=== PATIENT | female | born 1980 | race Caucasian/White ===

== ENCOUNTER 2017-11-30 15:26 | Observation (INO) ==
[2017-11-30] MEDS: 0.9 % Sodium Chloride 1,000 ML IVC SCH ×2 (16:32→17:16)
--- NOTE | 2017-11-30 16:41 | Emergency Department Note ---
Disposition Clinical Impression: Knee pain Qualifiers: Chronicity: acute Laterality: right Qualified Code(s): M25.561 - Pain in right knee Cellulitis Qualifiers: Site of cellulitis of extremity: lower extremity Laterality: right Sepsis Qualifiers: Sepsis type: sepsis due to unspecified organism Qualified Code(s): A41.9 - Sepsis, unspecified organism Disposition: Admitted As Inpatient Condition: Good Referrals: Belia Roberson [Primary Care Provider] - Forms: ED Satisfaction Letter Time of Disposition: 18:59 Extremity Problem HPI - General Chief complaint: ED Extremity Problem,Nontraumatic Stated complaint: R knee pain s/p scope Time Seen by Provider: 11/30/17 15:45 Source: patient, family Mode of arrival: ambulatory Limitations: no limitations Nursing Notes Reviewed: Yes Vital Signs Reviewed: Yes - History of Present Illness HPI Narrative: Patient presents to the ED with the chief complaint of right knee pain and swelling as well as right leg pain. Patient had a knee arthroscopy [address] Sewell in [place]. States that since then her knee has become progressively swollen, warm and painful to the point where it is difficult for her to walk and difficult for her to bend her knee. She also reports pain in her calf as well as pain in her medial thigh. Denies any fever, chills, chest pain, shortness of breath, abdominal pain, nausea, vomiting or diarrhea. She does have a history of a previous provoked DVT after hysterectomy and is no longer on anticoagulation. She is also had a left knee replacement and was on aspirin after that, but is not on any antiplatelet medications at this time Pain Scale: 10 - Related Data Home Medications Medication Instructions Recorded Confirmed Cholecalciferol (D-3) [Vitamin D] 2,000 unit PO DAILY 05/31/16 02/14/17 Gabapentin [Neurontin] 800 mg PO QID 05/31/16 02/14/17 Levothyroxine Sodium [Levo-T] 200 mcg PO DAILY 05/31/16 02/14/17 Pnv95/Iron Fum/Folic Acid 1 tab PO DAILY 05/31/16 02/14/17 [ Caplet] Promethazine [Phenergan] 25 mg PO Q8HR 05/31/16 02/14/17 Quetiapine Fumarate [Seroquel] 200 mg PO DAILY 05/31/16 02/14/17 Ranitidine HCl [Acid Digital Account Executive] 150 mg PO BID 05/31/16 02/14/17 Sertraline [Zoloft] 100 mg PO DAILY 05/31/16 02/14/17 Previous Rx's Medication Instructions Recorded Clindamycin [Cleocin] 150 mg PO Q6HR #7 capsule 02/14/17 HYDROcodone/Acet 5/325 mg [[place] 1 tab PO Q6H PRN #14 tab 02/14/17 5-325 mg] Ibuprofen [Motrin] 800 mg PO Q8HR #30 tablet 02/14/17 OxyCODONE Immed Rel [Roxicodone 5 5 mg PO Q4HR PRN #14 tablet 02/14/17 MG] Allergies Allergy/AdvReac Type Severity Reaction Status Date / Time hydrocodone Allergy Hives Verified 11/30/17 15:40 penicillin G Allergy Rash Verified 11/30/17 15:40 tramadol Allergy Hives Verified 11/30/17 15:40 Review of Systems: As reviewed in the HPI. All other systems reviewed are negative or normal. Past Medical History - Past Medical History Attestation: Yes The following information was validated with the patient. 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 - Social History Smoking Status: Current every day smoker Smokeless Tobacco Status: No Alcohol use: Reports: occasionally Drug use: Reports: cocaine, IV Drug Use Physical Exam CONSTITUTIONAL: [well appearing in no acute distress] SKIN: [Warm, dry, and intact without rash] EYES: [extraocular movements are grossly intact, clear conjunctiva] HENT: [Normocephalic, atraumatic, moist mucus membranes] NECK: [no obvious swelling, normal range of motion] PULMONARY: [normal chest rise and fall, no respiratory distress or stridor CARDIOVASCULAR: [regular rate, distal extremities are warm and well perfused] GASTROINSTESTINAL: [nondistended, non-tender] GENITOURINARY: [deferred] NEUROLOGIC: [normal speech, moves all extremities] MUSCULOSKELETAL: [Well-healed left knee replacement incision, right knee incisions are clean, dry and intact with Steri-Strips. There is diffuse swelling and warmth to the right knee with decreased range of motion. She is able to fully extend her knee but has decreased flexion. There is no obvious erythema, but there does appear to be a joint effusion. She also has pain in her calf as well as pain along the deep venous structures in her right proximal thigh] PSYCHIATRIC: [normal mood and affect] - General Limitations: no limitations General appearance: alert, in no apparent distress Course Course Narrative: Patient presenting with knee pain and leg pain after recent knee surgery. Concern over possible DVT due to her tenderness, but her knee is also swollen and warm. We will check labs, x-ray and a DVT ultrasound. Would be very early for a septic joint and still could be a cellulitis due to warmth but is difficult to tell if there are color changes due to patient's skin color. Vital Signs Temperature 99.1 F 11/30/17 15:41 Pulse Rate 99 11/30/17 15:41 Respiratory Rate 20 11/30/17 15:41 Blood Pressure 124/74 11/30/17 15:41 O2 Sat by Pulse Oximetry 97 11/30/17 15:41 Temperature 99.1 F 11/30/17 15:52 Pulse Rate 84 11/30/17 18:41 Respiratory Rate 20 11/30/17 15:52 Blood Pressure 117/64 11/30/17 18:41 O2 Sat by Pulse Oximetry 99 11/30/17 18:41 Oxygen Delivery Oxygen Delivery Room Air Extremity Problem, Nontraumati - Lab Data Result diagrams: 11/30/17 16:18 11/30/17 17:26 Lab Results 11/30/17 11/30/17 11/30/17 Range/Units 16:18 16:18 16:18 WBC 13.2 H (4.3-11.1) K/mcL RBC 5.46 H (3.82-4.97) M/mcL Hgb 16.2 H (11.5-15.4) g/dL Hct 47.6 H (35.3-44.9) % MCV 87.2 (83.0-100.0) fL MCH 29.7 (28.0-33.3) pg MCHC 34.0 (31.6-35.5) g/dL RDW 14.1 (11.5-14.5) % Plt Count 291 (140-400) K/mcL MPV 11.4 (9.4-12.4) fL Immature Gran % 0.4 (0-4) % Seg Neutrophils % 66.5 % Lymphocytes % 25.8 % Monocytes % 5.9 % Eosinophils % 0.9 % Basophils % 0.5 % Neutrophils # 8.8 (1.6-8.9) K/mcL Lymphocytes # 3.4 (0.6-4.6) K/mcL Monocytes # 0.8 (0.0-1.3) K/mcL Eosinophils # 0.1 (0.0-0.6) K/mcL Basophils # 0.1 (0.0-0.2) K/mcL ESR >= 130 H (0-15) mm/hr Sodium (136-145) mEq/L Potassium (3.5-5.1) mEq/L Chloride (98-107) mEq/L Carbon Dioxide (23-29) mEq/L BUN (6-20) mg/dL Creatinine (0.60-1.20) mg/dL Est GFR ( Amer) (> 60) Est GFR (Non-Af Amer) (> 60) BUN/Creatinine Ratio (6-26) Glucose (70-105) mg/dL Calculated Osmolality (280-300) Lactic Acid (0.5-2.2) mmol/L Calcium (8.6-10.3) mg/dL C-Reactive Protein (Less than 10) mg/L Specimen Rejected Hemolyzed 18 11/30/17 Range/Units 17:26 17:39 WBC (4.3-11.1) K/mcL RBC (3.82-4.97) M/mcL Hgb (11.5-15.4) g/dL Hct (35.3-44.9) % MCV (83.0-100.0) fL MCH (28.0-33.3) pg MCHC (31.6-35.5) g/dL RDW (11.5-14.5) % Plt Count (140-400) K/mcL MPV (9.4-12.4) fL Immature Gran % (0-4) % Seg Neutrophils % % Lymphocytes % % Monocytes % % Eosinophils % % Basophils % % Neutrophils # (1.6-8.9) K/mcL Lymphocytes # (0.6-4.6) K/mcL Monocytes # (0.0-1.3) K/mcL Eosinophils # (0.0-0.6) K/mcL Basophils # (0.0-0.2) K/mcL ESR (0-15) mm/hr Sodium 137 (136-145) mEq/L Potassium 4.0 (3.5-5.1) mEq/L Chloride 106 (98-107) mEq/L Carbon Dioxide 23 (23-29) mEq/L BUN 15 (6-20) mg/dL Creatinine 1.06 (0.60-1.20) mg/dL Est GFR ( Amer) > 60 (> 60) Est GFR (Non-Af Amer) 58 L (> 60) BUN/Creatinine Ratio 14 (6-26) Glucose 74 (70-105) mg/dL Calculated Osmolality 283 (280-300) Lactic Acid 1.4 (0.5-2.2) mmol/L Calcium 9.1 (8.6-10.3) mg/dL C-Reactive Protein < 5 (Less than 10) mg/L Specimen Rejected
[2017-11-30 16:49] LABS: Basophils # 0.1 K/mcL (0.0-0.2); Basophils % 0.5 %; Eosinophils # 0.1 K/mcL (0.0-0.6); Eosinophils % 0.9 %; Hematocrit 47.6 % (35.3-44.9); Hemoglobin 16.2 g/dL (11.5-15.4); Immature Granulocytes % 0.4 % (0-4); Lymphocytes # 3.4 K/mcL (0.6-4.6); Lymphocytes % 25.8 %; Mean Corpuscular Hemoglobin 29.7 pg (28.0-33.3); Mean Corpuscular Volume 87.2 fL (83.0-100.0); Mean Platelet Volume 11.4 fL (9.4-12.4); Monocytes # 0.8 K/mcL (0.0-1.3); Monocytes % 5.9 %; Neutrophils # 8.8 K/mcL (1.6-8.9); Platelet Count 291 K/mcL (140-400); Red Blood Count 5.46 M/mcL (3.82-4.97); Red Cell Distribution Width 14.1 % (11.5-14.5); Segmented Neutrophils % 66.5 %
[2017-11-30] MEDS ORDERED: cefTRIAXone 2,000 MG in Water for inj. (sterile) 20 ML 20 ML IVP ONE (17:02)
[2017-11-30 18:05] LABS: C-Reactive Protein < 5 mg/L (Less than 10)
[2017-11-30 18:18] LABS: BUN/Creatinine Ratio 14 (6-26); Blood Urea Nitrogen 15 mg/dL (6-20); Calcium 9.1 mg/dL (8.6-10.3); Carbon Dioxide 23 mEq/L (23-29); Chloride 106 mEq/L (98-107); Glucose 74 mg/dL (70-105); Osmolality,Calculated 283 (280-300); Sodium 137 mEq/L (136-145); eGFR For African Americans > 60 (> 60); eGFR For Non-African Americans 58 (> 60)
[2017-11-30 19:26] LABS: Bilirubin,Urine Negative (Negative); Blood,Urine Negative (Negative); Clarity,Urine Clear (Clear); Color,Urine Yellow (Yellow); Glucose,Urine (UA) Normal (Normal); Ketones,Urine Negative (Negative); Leukocyte Esterase,Urine Negative (Negative); Nitrite,Urine Negative (Negative); PH,Urine 5.5 pH Units (5.0-8.0); Protein,Urine Negative (Neg-Trace); Specific Gravity,Urine 1.017 (1.010-1.025); Urobilinogen,Urine Normal (Normal)
--- NOTE | 2017-11-30 19:45 | Emergency Department Note ---
Disposition Clinical Impression: Knee pain Qualifiers: Chronicity: acute Laterality: right Qualified Code(s): M25.561 - Pain in right knee Cellulitis Qualifiers: Site of cellulitis of extremity: lower extremity Laterality: right Sepsis Qualifiers: Sepsis type: sepsis due to unspecified organism Qualified Code(s): A41.9 - Sepsis, unspecified organism Disposition: Admitted As Inpatient Condition: Good General Adult HPI - General Chief complaint: ED Extremity Problem,Nontraumatic Stated complaint: R knee pain s/p scope Time Seen by Provider: 11/30/17 15:45 Source: patient, family Mode of arrival: ambulatory Limitations: no limitations - History of Present Illness Pain Scale: 10 - Related Data Home Medications Medication Instructions Recorded Confirmed Cholecalciferol (D-3) [Vitamin D] 2,000 unit PO DAILY 05/31/16 02/14/17 Gabapentin [Neurontin] 800 mg PO QID 05/31/16 02/14/17 Levothyroxine Sodium [Levo-T] 200 mcg PO DAILY 05/31/16 02/14/17 Pnv95/Iron Fum/Folic Acid 1 tab PO DAILY 05/31/16 02/14/17 [ Caplet] Promethazine [Phenergan] 25 mg PO Q8HR 05/31/16 02/14/17 Quetiapine Fumarate [Seroquel] 200 mg PO DAILY 05/31/16 02/14/17 Ranitidine HCl [Acid Manager Of Loss Prevention Operations] 150 mg PO BID 05/31/16 02/14/17 Sertraline [Zoloft] 100 mg PO DAILY 05/31/16 02/14/17 Previous Rx's Medication Instructions Recorded Clindamycin [Cleocin] 150 mg PO Q6HR #7 capsule 02/14/17 HYDROcodone/Acet 5/325 mg [[place] 1 tab PO Q6H PRN #14 tab 02/14/17 5-325 mg] Ibuprofen [Motrin] 800 mg PO Q8HR #30 tablet 02/14/17 OxyCODONE Immed Rel [Roxicodone 5 5 mg PO Q4HR PRN #14 tablet 02/14/17 MG] Allergies Allergy/AdvReac Type Severity Reaction Status Date / Time hydrocodone Allergy Hives Verified 11/30/17 15:40 penicillin G Allergy Rash Verified 11/30/17 15:40 tramadol Allergy Hives Verified 11/30/17 15:40 Past Medical History - Past Medical History Medical history: Reports: arthritis, GERD, thyroid disease Surgical history: Reports: non-contributory, hysterectomy Psychiatric history: Reports: anxiety, depression 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 - Social History Smoking Status: Current every day smoker Smokeless Tobacco Status: No Alcohol use: Reports: occasionally Drug use: Reports: cocaine, IV Drug Use Physical Exam - General Limitations: no limitations General appearance: alert, in no apparent distress Course Vital Signs Temperature 99.1 F 11/30/17 15:41 Pulse Rate 99 11/30/17 15:41 Respiratory Rate 20 11/30/17 15:41 Blood Pressure 124/74 11/30/17 15:41 O2 Sat by Pulse Oximetry 97 11/30/17 15:41 Temperature 99.1 F 11/30/17 15:52 Pulse Rate 84 11/30/17 18:41 Respiratory Rate 20 11/30/17 15:52 Blood Pressure 117/64 11/30/17 18:41 O2 Sat by Pulse Oximetry 99 11/30/17 18:41 Oxygen Delivery Oxygen Delivery Room Air Medical Decision Making - Lab Data Result diagrams: 11/30/17 16:18 11/30/17 17:26 Lab Results 11/30/17 11/30/17 11/30/17 Range/Units 16:18 16:18 16:18 WBC 13.2 H (4.3-11.1) K/mcL RBC 5.46 H (3.82-4.97) M/mcL Hgb 16.2 H (11.5-15.4) g/dL Hct 47.6 H (35.3-44.9) % MCV 87.2 (83.0-100.0) fL MCH 29.7 (28.0-33.3) pg MCHC 34.0 (31.6-35.5) g/dL RDW 14.1 (11.5-14.5) % Plt Count 291 (140-400) K/mcL MPV 11.4 (9.4-12.4) fL Immature Gran % 0.4 (0-4) % Seg Neutrophils % 66.5 % Lymphocytes % 25.8 % Monocytes % 5.9 % Eosinophils % 0.9 % Basophils % 0.5 % Neutrophils # 8.8 (1.6-8.9) K/mcL Lymphocytes # 3.4 (0.6-4.6) K/mcL Monocytes # 0.8 (0.0-1.3) K/mcL Eosinophils # 0.1 (0.0-0.6) K/mcL Basophils # 0.1 (0.0-0.2) K/mcL ESR >= 130 H (0-15) mm/hr Sodium (136-145) mEq/L Potassium (3.5-5.1) mEq/L Chloride (98-107) mEq/L Carbon Dioxide (23-29) mEq/L BUN (6-20) mg/dL Creatinine (0.60-1.20) mg/dL Est GFR ( Amer) (> 60) Est GFR (Non-Af Amer) (> 60) BUN/Creatinine Ratio (6-26) Glucose (70-105) mg/dL Calculated Osmolality (280-300) Lactic Acid (0.5-2.2) mmol/L Calcium (8.6-10.3) mg/dL C-Reactive Protein (Less than 10) mg/L Urine Color (Yellow) Urine Clarity (Clear) Urine pH (5.0-8.0) pH Units Ur Specific [place] (1.010-1.025) Urine Protein (Neg-Trace) mg/dL Urine Glucose (UA) (Normal) mg/dL Urine Ketones (Negative) mg/dL Urine Blood (Negative) Urine Nitrite (Negative) Urine Bilirubin (Negative) Urine Urobilinogen (Normal) mg/dL Ur Leukocyte Esterase (Negative) Ur Culture Indicated? (NO) Specimen Rejected Hemolyzed 11/30/17 11/30/17 11/30/17 Range/Units 17:26 17:39 19:16 WBC (4.3-11.1) K/mcL RBC (3.82-4.97) M/mcL Hgb (11.5-15.4) g/dL Hct (35.3-44.9) % MCV (83.0-100.0) fL MCH (28.0-33.3) pg MCHC (31.6-35.5) g/dL RDW (11.5-14.5) % Plt Count (140-400) K/mcL MPV (9.4-12.4) fL Immature Gran % (0-4) % Seg Neutrophils % % Lymphocytes % % Monocytes % % Eosinophils % % Basophils % % Neutrophils # (1.6-8.9) K/mcL Lymphocytes # (0.6-4.6) K/mcL Monocytes # (0.0-1.3) K/mcL Eosinophils # (0.0-0.6) K/mcL Basophils # (0.0-0.2) K/mcL ESR (0-15) mm/hr Sodium 137 (136-145) mEq/L Potassium 4.0 (3.5-5.1) mEq/L Chloride 106 (98-107) mEq/L Carbon Dioxide 23 (23-29) mEq/L BUN 15 (6-20) mg/dL Creatinine 1.06 (0.60-1.20) mg/dL Est GFR ( Amer) > 60 (> 60) Est GFR (Non-Af Amer) 58 L (> 60) BUN/Creatinine Ratio 14 (6-26) Glucose 74 (70-105) mg/dL Calculated Osmolality 283 (280-300) Lactic Acid 1.4 (0.5-2.2) mmol/L Calcium 9.1 (8.6-10.3) mg/dL C-Reactive Protein < 5 (Less than 10) mg/L Urine Color Yellow (Yellow) Urine Clarity Clear (Clear) Urine pH 5.5 (5.0-8.0) pH Units Ur Specific [place] 1.017 (1.010-1.025) Urine Protein Negative (Neg-Trace) mg/dL Urine Glucose (UA) Normal (Normal) mg/dL Urine Ketones Negative (Negative) mg/dL Urine Blood Negative (Negative) Urine Nitrite Negative (Negative) Urine Bilirubin Negative (Negative) Urine Urobilinogen Normal (Normal) mg/dL Ur Leukocyte Esterase Negative (Negative) Ur Culture Indicated? NO (NO) Specimen Rejected Attestation Statement - Attestation Attestation: I examined this patient and my medical decision-making was reviewed with the Resident Physician, Dr. Mcfarland. I agree with the documented findings, disposition and treatment plan as described except to the extent set forth below. Patient is a 37-year-old white female who is status post right knee surgery I Dr. Donaldo carey approximately 3 days ago. Patient states that since the surgery she has been having gradually worsening swelling redness and warmth to been knee and difficulty bending the knee due to his due to pain. Patient's also complaining of some pain in her left posterior lower leg and medial thigh. Patient has had a history of prior DVT postoperatively but is no longer on anticoagulation. Patient denies any chest pain pressure or heaviness no shortness of breath or hemoptysis. I agree with patient's physical exam findings as documented. Vital signs on initial arrival are stable. Patient IV established labs were drawn and sent including a sedimentation rate and blood culture, and plain film imaging was obtained. Plain film imaging did not show any joint effusion. Patient with elevated white count with left shift as well as a significantly elevated sedimentation rate. On reevaluation patient was becoming tachycardic so IV fluids were initiated and lactate was added to the lab evaluation. IV antibiotics were. Please started for cellulitis versus septic joint. CRP was normal, lactate was within normal limits and vitals responded nicely to IV fluids. Patient has been hemodynamically stable since that time. Case was discussed with Dr. Donaldo carey who agreed with admission and consultation and will see the patient tomorrow. Patient was accepted by the hospitalist for further evaluation and management.
[2017-11-30] MEDS ORDERED: Ipratropium/Albuterol Neb 3 ML IH PRN (19:48)
[2017-11-30] MEDS ORDERED: Ibuprofen 400 MG TABLET PO PRN (19:49)
[2017-11-30] MEDS ORDERED: *HR* OxyCODONE Immed Rel 5 MG TABLET PO PRN (19:49)
[2017-11-30] MEDS ORDERED: Naloxone 0.4 MG/ML INJ IVP PRN (19:49)
[2017-11-30] MEDS ORDERED: traMADol 50 MG TABLET PO PRN (19:49)
--- NOTE | 2017-11-30 19:54 | Internal Med History&Physical ---
Date of Encounter: 11/30/17 Time of Encounter: 19:52 Internal Medicine - H&P: HPI Chief complaint: Right knee pain Admitted From: Emergency Dept History of present illness: Ms. Darryl Mehta is a 37 year old female with a past mental history of hepatitis C, remote history of IV drug abuse, osteoarthritis, came to emergency room complaining of severe knee pain after having an arthroscopy 4 days ago on her right knee performed by Dr. Sewell, the patient describes a 10 out of 10 type of pain, says that her knee has become more swollen, warm, can barely and it. This procedure was performed in [place]. X-ray shows a right suprapatellar effusion. White blood cell count is 13.2 hemoglobin has increased from a baseline of 12.2 at 2 level of 16.2 possibly from dehydration, temperature was 99.1, ESR was more than 130. Patient received Rocephin and IV vancomycin at the emergency room and Dr. Sewell has been contacted. There is minimal redness around the 2 small surgical wounds. 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 grey carpal tunnel. fx rt hand repair - Social History Smoking Status: Current every day smoker Packs per day: Half a pack per day Smokeless Tobacco Status: No Alcohol use: occasionally Drug use: cocaine, IV Drug Use - Additional Family History Additional family history: Mother with diabetes Internal Medicine - H&P: Meds Cholecalciferol (D-3) [Vitamin D] 2,000 unit PO DAILY 05/31/16 [History] Gabapentin [Neurontin] 800 mg PO QID 05/31/16 [History] Levothyroxine Sodium [Levo-T] 200 mcg PO DAILY 05/31/16 [History] Pnv95/Iron Fum/Folic Acid [ [place]] 1 tab PO DAILY 05/31/16 [History] Promethazine [Phenergan] 25 mg PO Q8HR 05/31/16 [History] Quetiapine Fumarate [Seroquel] 200 mg PO DAILY 05/31/16 [History] Ranitidine HCl [Acid Compensation And Benefits Administrator] 150 mg PO BID 05/31/16 [History] Sertraline [Zoloft] 100 mg PO DAILY 05/31/16 [History] Clindamycin [Cleocin] 150 mg PO Q6HR #7 capsule 02/14/17 [Rx] HYDROcodone/Acet 5/325 mg [[place] 5-325 mg] 1 tab PO Q6H PRN #14 tab 02/14/17 [Rx ] Ibuprofen [Motrin] 800 mg PO Q8HR #30 tablet 02/14/17 [Rx] OxyCODONE Immed Rel [Roxicodone 5 MG] 5 mg PO Q4HR PRN #14 tablet 02/14/17 [Rx] 3 Allergy/AdvReac Type Severity Reaction Status Date / Time hydrocodone Allergy Hives Verified 11/30/17 15:40 penicillin G Allergy Rash Verified 11/30/17 15:40 tramadol Allergy Hives Verified 11/30/17 15:40 All Systems PM: A 10-system review of systems was performed and is negative for pertinent findings except as documented above in the HPI. Review of systems: No chest pain or shortness of breath, other systems out of the 10 reviewed were negative - Constitutional Vitals: Temp Pulse Resp BP Pulse Ox 99.1 F 84 20 117/64 99 11/30/17 15:52 11/30/17 18:41 11/30/17 15:52 11/30/17 18:41 11/30/17 18:41 General appearance: Present: A&O X 3 - Head Head exam: Present: atraumatic, normocephalic - Eye Eye exam: Present: PERRL, conjuntiva pink, sclera anicteric Pupils: Present: PERRL - Neck Neck exam general surgery: Present: supple, trachea midline. Absent: lymphadenopathy - Respiratory Respiratory exam: Present: CTAB. Absent: accessory muscle use, rales, rhonchi, wheezes - Cardiovascular Cardiovascular exam: Present: RRR, +S1, +S2. Absent: diastolic murmur, gallop, rubs, systolic murmur - GI/Abdominal GI/Abdominal exam: Present: normal bowel sounds, soft, no peritoneal signs. Absent: distended, tenderness - Extremities Exam Extremities exam: Present: warm, radial pulses palpable and symmetrical. Absent : calf tenderness, cyanotic, pedal edema - Neurological Exam Neurological exam: Present: CN II-XII intact, oriented X3, no focal deficits. Absent: pronater drift, facial droop, speech deficit - Skin Skin exam: Present: dry. Absent: intact Additional comments: Right knee is very swollen, tender to touch, no erythema appreciated, surgical wounds did not appear infected Internal Med - H&P Results - Labs CBC & Chem 7: 11/30/17 16:18 11/30/17 17:26 Labs: Short CBC 11/30/17 Range/Units 16:18 WBC 13.2 H (4.3-11.1) K/mcL Hgb 16.2 H (11.5-15.4) g/dL Hct 47.6 H (35.3-44.9) % Plt Count 291 (140-400) K/mcL Neutrophils # 8.8 (1.6-8.9) K/mcL BMP 11/30/17 17:26 Sodium 137 Potassium 4.0 Chloride 106 Carbon Dioxide 23 BUN 15 Creatinine 1.06 Glucose 74 Calcium 9.1 Urine 11/30/17 Range/Units 19:16 Urine Color Yellow (Yellow) Urine Clarity Clear (Clear) Urine pH 5.5 (5.0-8.0) pH Units Ur Specific [place] 1.017 (1.010-1.025) Urine Protein Negative (Neg-Trace) mg/dL Urine Glucose (UA) Normal (Normal) mg/dL - Impressions ITS Impressions Knee X-Ray 11/30/17 15:52 IMPRESSION: 1. No acute findings in the right knee. 2. Minimal tricompartmental osteoarthritic changes of the right knee. 3. Trace right suprapatellar effusion. D/ / Bob Llanes MD / Bob Llanes MD Interpreting Provider: Bob Llanes MD - Assessment and plan (1) Knee pain Current Visit: Yes Status: Acute Assessment and plan: intractable right knee pain after right knee arthroscopy Consider possible cellulitis? Orthopedic surgery was consulted, IV fluids for dehydration Pain control Consider further imaging Wound cultures Continue IV vancomycin for now Omeprazole for GI prophylaxis and Lovenox for DVT prophylaxis. The patient will be admitted for observation. Full code. Time spent on this admission 40 minutes Qualifiers: Chronicity: acute Laterality: right Qualified Code(s): M25.561 - Pain in right knee (2) Leukocytosis Current Visit: Yes Status: Acute Qualifiers: Leukocytosis type: unspecified Qualified Code(s): D72.829 - Elevated white blood cell count, unspecified (3) Dehydration Current Visit: Yes Status: Acute Assessment and plan: Continue IV fluids Hemoconcentration (4) GERD (gastroesophageal reflux disease) Current Visit: Yes Status: Acute Qualifiers: Esophagitis presence: without esophagitis Qualified Code(s): K21.9 - Gastro -esophageal reflux disease without esophagitis (5) History of intravenous drug abuse Current Visit: Yes Status: Acute (6) Tobacco abuse Current Visit: Yes Status: Acute Assessment and plan: Smoking cessation counseling given for 5 min , nicotine patch (7) Hepatitis C Current Visit: Yes Status: Acute Qualifiers: Viral hepatitis chronicity: unspecified Hepatic coma status: without hepatic coma Qualified Code(s): B19.20 - Unspecified viral hepatitis C without hepatic coma (8) Depression Current Visit: No Status: Acute Qualifiers: Depression Type: major depressive disorder Major depression recurrence: recurrent Active/Remission status: in partial remission Qualified Code(s): F33.41 - Major depressive disorder, recurrent, in partial remission - Time Spent With Patient Total time spent is greater than 50% in coordination of care (as documented) at patient's floor/unit and/or counseling patient:
[2017-11-30] MEDS: Gabapentin 400 MG CAPSULE PO SCH (21:55)
[2017-11-30] MEDS: Nicotine 21 MG PATCH.TD24 TD SCH (21:55)
[2017-11-30] MEDS: *HR* Enoxaparin 40 MG/0.4 ML SYRINGE SQ SCH (21:55)
[2017-12-01] MEDS: ALPRAZolam 1 MG TABLET PO SCH ×5 (00:33→21:19)
[2017-12-01 03:27] LABS: Hematocrit 39.2 % (35.3-44.9); Mean Corpuscular HGB Conc 33.4 g/dL (31.6-35.5); Mean Corpuscular Hemoglobin 28.5 pg (28.0-33.3); Mean Corpuscular Volume 85.4 fL (83.0-100.0); Mean Platelet Volume 11.1 fL (9.4-12.4); Platelet Count 237 K/mcL (140-400); Red Blood Count 4.59 M/mcL (3.82-4.97); Red Cell Distribution Width 14.1 % (11.5-14.5)
[2017-12-01 03:33] LABS: BUN/Creatinine Ratio 18 (6-26); Blood Urea Nitrogen 15 mg/dL (6-20); Calcium 8.4 mg/dL (8.6-10.3); Carbon Dioxide 22 mEq/L (23-29); Chloride 110 mEq/L (98-107); Glucose 105 mg/dL (70-105); Osmolality,Calculated 283 (280-300); Potassium 3.7 mEq/L (3.5-5.1); Sodium 136 mEq/L (136-145); eGFR For African Americans > 60 (> 60); eGFR For Non-African Americans > 60 (> 60)
[2017-12-01 03:37] LABS: Hemoglobin 13.1 g/dL (11.5-15.4)
[2017-12-01] MEDS: *HR* Enoxaparin 40 MG/0.4 ML SYRINGE SQ SCH (05:08)
[2017-12-01] MEDS: Acetaminophen 325 MG TABLET PO PRN ×2 (05:10→11:23)
[2017-12-01] MEDS: Gabapentin 400 MG CAPSULE PO SCH ×4 (07:34→21:18)
[2017-12-01] MEDS: Famotidine 20 MG TABLET PO SCH ×2 (07:34→16:03)
[2017-12-01] MEDS: Nicotine 21 MG PATCH.TD24 TD SCH (07:35)
--- NOTE | 2017-12-01 08:46 | Internal Med Progress Note ---
Date of Encounter: 12/01/17 Time of Encounter: 08:44 - Assessment and plan (1) Knee pain Current Visit: Yes Status: Acute Assessment and plan: S/P right knee arthroscopy. Erythema and edema improved. Possible cellulitis. Orthopedics consulted; appreciate input. Added toradol per patient's request for pain control. Continue IV vancomycin. Wound culture pending. Continue IVF for hydration. Recheck labwork in AM. Qualifiers: Chronicity: acute Laterality: right Qualified Code(s): M25.561 - Pain in right knee (2) Depression Current Visit: Yes Status: Chronic Assessment and plan: Continue home medications. Qualifiers: Depression Type: major depressive disorder Major depression recurrence: recurrent Active/Remission status: in partial remission Qualified Code(s): F33.41 - Major depressive disorder, recurrent, in partial remission (3) Leukocytosis Current Visit: Yes Status: Acute Assessment and plan: Improved. Possible right knee cellulitis. Continue antibiotics as per above. Qualifiers: Leukocytosis type: unspecified Qualified Code(s): D72.829 - Elevated white blood cell count, unspecified (4) Dehydration Current Visit: Yes Status: Acute Assessment and plan: Continue IVF. Likely hemoconcentration. (5) GERD (gastroesophageal reflux disease) Current Visit: Yes Status: Chronic Assessment and plan: Continue omeprazole and famotidine. Qualifiers: Esophagitis presence: without esophagitis Qualified Code(s): K21.9 - Gastro -esophageal reflux disease without esophagitis (6) History of intravenous drug abuse Current Visit: Yes Status: Chronic Assessment and plan: No withdrawal symptoms at this time. Continue to monitor. (7) Tobacco abuse Current Visit: Yes Status: Chronic Assessment and plan: Counselled on smoking cessation. Continue nicotine transdermal. (8) Hepatitis C Current Visit: Yes Status: Chronic Assessment and plan: Keep outpatient follow up. Qualifiers: Viral hepatitis chronicity: unspecified Hepatic coma status: without hepatic coma Qualified Code(s): B19.20 - Unspecified viral hepatitis C without hepatic coma (9) DVT prophylaxis Current Visit: Yes Status: Acute Assessment and plan: Continue SQ lovenox. - Time Spent With Patient Total time spent is greater than 50% in coordination of care (as documented) at patient's floor/unit and/or counseling patient: less than 15 minutes - Subjective Interval history: Patient had no acute events overnight. She still has pain in right knee, but erythema and edema improved. She states that she cannot take opioids and wants toradol for pain. She denies fever, chills, chest pain, SOB, nausea, vomiting, and abdominal pain. She has no other complaints at this time. - Constitutional Vitals: Temp Pulse Resp BP Pulse Ox 97.5 F L 80 17 104/70 96 12/01/17 08:17 12/01/17 08:17 12/01/17 08:17 12/01/17 08:17 12/01/17 08:17 General appearance: Present: cooperative, A&O X 3, pleasant, no acute distress, answers questions appropriately - Respiratory Respiratory exam: Present: CTAB. Absent: accessory muscle use, rales, rhonchi, wheezes Additional comments: Normal WOB - Cardiovascular Cardiovascular exam: Present: RRR, +S1, +S2. Absent: diastolic murmur, gallop, rubs, systolic murmur Additional comments: Trace right knee edema, otherwise no BLE edema - GI/Abdominal GI/Abdominal exam: Present: normal bowel sounds, soft. Absent: distended, hepatomegaly, mass, splenomegaly, tenderness - Extremities Exam Additional comments: Mild erythema and edema of right knee, surgical scar on left knee - Psychiatric Psychiatric exam: Present: normal affect, normal mood. Absent: agitated, anxious, depressed - Skin Skin exam: Present: dry, intact, warm. Absent: cyanosis, rash Internal Medicine: Result - Labs CBC & Chem 7: 12/01/17 02:26 12/01/17 02:26 Labs: Short CBC 12/01/17 Range/Units 02:26 WBC 9.4 (4.3-11.1) K/mcL Hgb 13.1 D (11.5-15.4) g/dL Hct 39.2 (35.3-44.9) % Plt Count 237 (140-400) K/mcL BMP 12/01/17 02:26 Sodium 136 Potassium 3.7 Chloride 110 H Carbon Dioxide 22 L BUN 15 Creatinine 0.85 Glucose 105 Calcium 8.4 L Consult Discharge Plan - Plan Referrals: Belia Roberson [Primary Care Provider] -
[2017-12-01] MEDS: Prenatal Vit/FA 1 EACH TABLET PO SCH (08:59)
[2017-12-01] MEDS ORDERED: GI Cocktail 40 ML EACH PO ONE (12:30)
[2017-12-02 02:46] LABS: Basophils % 0.4 %; Eosinophils # 0.1 K/mcL (0.0-0.6); Eosinophils % 1.7 %; Hematocrit 37.6 % (35.3-44.9); Immature Granulocytes % 0.4 % (0-4); Lymphocytes # 2.6 K/mcL (0.6-4.6); Lymphocytes % 32.7 %; Mean Corpuscular HGB Conc 34.6 g/dL (31.6-35.5); Mean Corpuscular Hemoglobin 29.6 pg (28.0-33.3); Mean Corpuscular Volume 85.6 fL (83.0-100.0); Mean Platelet Volume 11.3 fL (9.4-12.4); Monocytes # 0.4 K/mcL (0.0-1.3); Monocytes % 5.6 %; Neutrophils # 4.7 K/mcL (1.6-8.9); Platelet Count 207 K/mcL (140-400); Red Blood Count 4.39 M/mcL (3.82-4.97); Red Cell Distribution Width 13.8 % (11.5-14.5); Segmented Neutrophils % 59.2 %
[2017-12-02 03:06] LABS: BUN/Creatinine Ratio 18 (6-26); Blood Urea Nitrogen 16 mg/dL (6-20); Calcium 8.3 mg/dL (8.6-10.3); Carbon Dioxide 19 mEq/L (23-29); Chloride 112 mEq/L (98-107); Glucose 112 mg/dL (70-105); Osmolality,Calculated 286 (280-300); Potassium 4.3 mEq/L (3.5-5.1); Sodium 137 mEq/L (136-145); eGFR For African Americans > 60 (> 60); eGFR For Non-African Americans > 60 (> 60)
[2017-12-02] MEDS: *HR* Enoxaparin 40 MG/0.4 ML SYRINGE SQ SCH (06:15)
[2017-12-02] MEDS: Famotidine 20 MG TABLET PO SCH ×2 (06:15→15:43)
[2017-12-02] MEDS: Gabapentin 400 MG CAPSULE PO SCH ×4 (07:26→20:17)
[2017-12-02] MEDS: Prenatal Vit/FA 1 EACH TABLET PO SCH (07:26)
[2017-12-02] MEDS: Nicotine 21 MG PATCH.TD24 TD SCH (07:27)
[2017-12-02] MEDS: ALPRAZolam 1 MG TABLET PO SCH ×4 (07:27→20:17)
--- NOTE | 2017-12-02 07:48 | Internal Med Progress Note ---
Date of Encounter: 12/02/17 Time of Encounter: 07:46 - Assessment and plan (1) Knee pain Current Visit: Yes Status: Acute Assessment and plan: S/P right knee arthroscopy. Erythema, edema, and pain improved. Possible cellulitis. Orthopedics consulted; appreciate input. Continue toradol PRN pain. Continue IV vancomycin. Wound culture pending. Discontinue IVF now that she's tolerating good PO. Recheck labwork in AM. Consider discharge in AM tomorrow with PO antibiotics after orthopedic evaluation this evening. Qualifiers: Chronicity: acute Laterality: right Qualified Code(s): M25.561 - Pain in right knee (2) Depression Current Visit: Yes Status: Chronic Assessment and plan: Continue home medications. Qualifiers: Depression Type: major depressive disorder Major depression recurrence: recurrent Active/Remission status: in partial remission Qualified Code(s): F33.41 - Major depressive disorder, recurrent, in partial remission (3) Leukocytosis Current Visit: Yes Status: Resolved Assessment and plan: Resolved. Possible right knee cellulitis. Continue antibiotics as per above. Recheck CBC in AM. Qualifiers: Leukocytosis type: unspecified Qualified Code(s): D72.829 - Elevated white blood cell count, unspecified (4) Dehydration Current Visit: Yes Status: Resolved Assessment and plan: Now tolerating good PO. Likely hemoconcentration. Discontinue IVF. Recheck BMP in AM. (5) GERD (gastroesophageal reflux disease) Current Visit: Yes Status: Chronic Assessment and plan: Continue omeprazole and famotidine. Qualifiers: Esophagitis presence: without esophagitis Qualified Code(s): K21.9 - Gastro -esophageal reflux disease without esophagitis (6) History of intravenous drug abuse Current Visit: Yes Status: Chronic Assessment and plan: No withdrawal symptoms at this time. Continue to monitor. (7) Tobacco abuse Current Visit: Yes Status: Chronic Assessment and plan: Counselled on smoking cessation. Continue nicotine transdermal. (8) Hepatitis C Current Visit: Yes Status: Chronic Assessment and plan: Keep outpatient follow up. Qualifiers: Viral hepatitis chronicity: unspecified Hepatic coma status: without hepatic coma Qualified Code(s): B19.20 - Unspecified viral hepatitis C without hepatic coma (9) DVT prophylaxis Current Visit: Yes Status: Acute Assessment and plan: Continue SQ lovenox. - Time Spent With Patient Total time spent is greater than 50% in coordination of care (as documented) at patient's floor/unit and/or counseling patient: less than 15 minutes - Subjective Interval history: Patient had no acute events overnight. She states pain in right knee is greatly improved. Erythema and edema also improved. She denies fever, chills, chest pain, SOB, nausea, vomiting, and abdominal pain. She has no other complaints at this time. - Constitutional Vitals: Temp Pulse Resp BP Pulse Ox 97.8 F 105 16 112/68 96 12/02/17 06:29 12/02/17 06:29 12/02/17 06:29 12/02/17 06:12/02/17 06:29 General appearance: Present: cooperative, A&O X 3, pleasant, no acute distress, answers questions appropriately - Respiratory Respiratory exam: Present: CTAB. Absent: accessory muscle use, rales, rhonchi, wheezes Additional comments: Normal WOB - Cardiovascular Cardiovascular exam: Present: RRR, +S1, +S2. Absent: diastolic murmur, gallop, rubs, systolic murmur Additional comments: Mild right knee edema, otherwise no BLE edema - GI/Abdominal GI/Abdominal exam: Present: normal bowel sounds, soft. Absent: distended, hepatomegaly, mass, splenomegaly, tenderness - Extremities Exam Additional comments: Mild edema, erythema, and TTP of right knee, surgical scar on left knee - Psychiatric Psychiatric exam: Present: normal affect, normal mood. Absent: agitated, anxious, depressed - Skin Skin exam: Present: dry, intact, warm. Absent: cyanosis, rash Internal Medicine: Result - Labs CBC & Chem 7: 12/02/17 02:29 12/02/17 02:29 Labs: Short CBC 12/02/17 Range/Units 02:29 WBC 7.9 (4.3-11.1) K/mcL Hgb 13.0 (11.5-15.4) g/dL Hct 37.6 (35.3-44.9) % Plt Count 207 (140-400) K/mcL Neutrophils # 4.7 (1.6-8.9) K/mcL BMP 12/02/17 02:29 Sodium 137 Potassium 4.3 Chloride 112 H Carbon Dioxide 19 L BUN 16 Creatinine 0.91 Glucose 112 H Calcium 8.3 L Consult Discharge Plan - Plan Referrals: Da,Belia [Primary Care Provider] -
[2017-12-02] MEDS ORDERED: Aminoglycoside Consult 1 EACH MC ONE (11:44)
--- NOTE | 2017-12-02 21:48 | Orthopedic Consult Note ---
Date of Encounter: 12/02/17 Time of Encounter: 21:43 History of Present Illness Chief complaint: Right knee pain HPI: Ms. Darryl Mehta is a 37 year old female who and undergone an uncomplicated right knee arthroscopy on 3117. Patient was noted to have medial and lateral meniscal tears as well as some mild arthritic changes in the knee. She also had some synovitis and a plica which was excised. The patient developed some increasing pain about 36 hours later, this coincides when the intra-articular Marcaine and morphine off. This was administered at the end of her surgical procedure. The patient presented to the emergency room at [facility] on the second postop day with complaints of right knee pain and swelling. She was admitted with concerns for a septic process in the right knee. Reviewed the patient's completed history and physical report as well as reviewed x-rays and lab studies. Pertinent orthopedic examination reveals well-healed arthroscopy portals. No evidence of an effusion in the knee at this time. There is some thigh tenderness. She does have some tenderness about the knee and a somewhat global fashion. There is some mild ecchymosis around the medial arthroscopy portal. I reviewed x-rays of the knee. These are unremarkable. Laboratory data was reviewed. The patient did have a leukocytosis of 13.2 with a dropped to normal in less than 24 hours. This is associated with a normal platelet count. There was no left shift. Sedimentation rate was elevated at 130. Urinalysis was clear. Impression: Status post right arthroscopic knee surgery with postoperative pain. No evidence of an infectious process. Recommendation: Now that antibiotics had been started would recommend continue with at least another 3-5 days of by mouth 2 to over a normal full course. I do not see any evidence of an infection nor of a need to proceed with arthrocentesis. There is no effusion to speak of and at this time the patient has been on IV antibiotics for more than 48 hours so that he possibility of identifying in an infectious agent if it was even present would be minimal. Think the patient is stable for discharge to home. She is scheduled to follow- up with me next week. She will follow-up then or sooner if any problems should arise between now next week. Thank you for allowing me to seen care for Harley. Sincerely, Regino Sewell,DO Past Med Surg Social Fam HX - Past Medical History Medical history: arthritis, DVT, GERD, thyroid disease Additional medical history: neuropathy, hep c, 1 kidney congenital Psychiatric history: anxiety, depression - Past Surgical History Surgical History: non-contributory, hysterectomy Additional surgical history: t&a, left total knee, carpal tunnel, tubal - Social History Smoking Status: Current every day smoker Packs per day: Half a pack per day Smokeless Tobacco Status: No Alcohol use: occasionally Drug use: none - Family History Mother Living Status: Cause of : heart failure Hx Family Cardiac Disorders: Yes Hx Family Endocrine Disorder: Yes (dm) Medications and Allergies Cholecalciferol (D-3) [Vitamin D] 2,000 unit PO DAILY 05/31/16 [History] Gabapentin [Neurontin] 800 mg PO QID 05/31/16 [History] Pnv95/Iron Fum/Folic Acid [ Caplet] 1 tab PO DAILY 05/31/16 [History] Promethazine [Phenergan] 25 mg PO Q8HR 05/31/16 [History] Quetiapine Fumarate [Seroquel] 400 mg PO DAILY 05/31/16 [History] Ranitidine HCl [Acid E Commerce Retailer] 150 mg PO BID 05/31/16 [History] Sertraline [Zoloft] 100 mg PO HS 05/31/16 [History] ALPRAZolam [Xanax 1 MG Tablet] 1 mg PO QID 11/30/17 [History] Ibuprofen [Motrin] 800 mg PO Q8HR 11/30/17 [History] Tizanidine HCl [Zanaflex] 6 mg PO BID 11/30/17 [History] ARIPiprazole [Abilify] 10 mg PO DAILY 12/02/17 [History] Levothyroxine Sodium [Levoxyl] 50 mcg PO DAILY 12/02/17 [History] Mometasone Furoate [Asmanex Hfa] 2 puff IH BID 12/02/17 [History] Oxycodone HCl [Oxaydo] 5 mg PO Q6H PRN 12/02/17 [History] 3 Allergy/AdvReac Type Severity Reaction Status Date / Time hydrocodone Allergy Hives Verified 11/30/17 15:40 penicillin G Allergy Rash Verified 11/30/17 15:40 tramadol Allergy Hives Verified 11/30/17 15:40 All Systems Reviewed: The remainder of the systems were reviewed and are negative Physical Exam - Constitutional Vitals: Temp Pulse Resp BP Pulse Ox 98.1 F 85 16 124/84 97 12/02/17 19:19 12/02/17 19:19 12/02/17 19:19 12/02/17 19:19 12/02/17 19:19 Results - Labs Result Diagrams: 12/02/17 02:29 12/02/17 02:29 Labs: Abnormal lab results ESR >= 130 mm/hr (0-15) H 11/30/17 16:18 Chloride 112 mEq/L (98-107) H 12/02/17 02:29 Carbon Dioxide 19 mEq/L (23-29) L 12/02/17 02:29 Glucose 112 mg/dL (70-105) H 12/02/17 02:29 Calcium 8.3 mg/dL (8.6-10.3) L 12/02/17 02:29 Vancomycin Trough 13 mcg/mL (5-10) H 12/02/17 08:12 H & H 12/02/17 Range/Units 02:29 Hgb 13.0 (11.5-15.4) g/dL Hct 37.6 (35.3-44.9) % All other labs normal. - Diagnostic results Knee x-ray: image reviewed Consult Discharge Plan - Plan Referrals: Belia Roberson [Primary Care Provider] -
[2017-12-03 02:14] LABS: Basophils % 0.5 %; Eosinophils # 0.2 K/mcL (0.0-0.6); Hematocrit 39.2 % (35.3-44.9); Hemoglobin 13.4 g/dL (11.5-15.4); Immature Granulocytes % 0.5 % (0-4); Lymphocytes # 2.7 K/mcL (0.6-4.6); Lymphocytes % 33.5 %; Mean Corpuscular HGB Conc 34.2 g/dL (31.6-35.5); Mean Corpuscular Hemoglobin 28.9 pg (28.0-33.3); Mean Corpuscular Volume 84.5 fL (83.0-100.0); Mean Platelet Volume 10.9 fL (9.4-12.4); Monocytes # 0.5 K/mcL (0.0-1.3); Neutrophils # 4.6 K/mcL (1.6-8.9); Platelet Count 231 K/mcL (140-400); Red Blood Count 4.64 M/mcL (3.82-4.97); Red Cell Distribution Width 13.8 % (11.5-14.5); Segmented Neutrophils % 57.5 %
[2017-12-03 02:25] LABS: BUN/Creatinine Ratio 16 (6-26); Blood Urea Nitrogen 14 mg/dL (6-20); Calcium 8.5 mg/dL (8.6-10.3); Carbon Dioxide 17 mEq/L (23-29); Chloride 110 mEq/L (98-107); Glucose 135 mg/dL (70-105); Osmolality,Calculated 285 (280-300); Potassium 3.9 mEq/L (3.5-5.1); Sodium 136 mEq/L (136-145); eGFR For African Americans > 60 (> 60); eGFR For Non-African Americans > 60 (> 60)
[2017-12-03] MEDS: *HR* Enoxaparin 40 MG/0.4 ML SYRINGE SQ SCH (05:49)
[2017-12-03 06:43] VITALS: BP 108/71
[2017-12-03] MEDS: Prenatal Vit/FA 1 EACH TABLET PO SCH (08:17)
[2017-12-03] MEDS: Famotidine 20 MG TABLET PO SCH (08:17)
[2017-12-03] MEDS: Nicotine 21 MG PATCH.TD24 TD SCH (08:17)
[2017-12-03] MEDS: ALPRAZolam 1 MG TABLET PO SCH (08:17)
[2017-12-03] MEDS: Gabapentin 400 MG CAPSULE PO SCH (08:17)
--- NOTE | 2017-12-03 10:42 | Discharge Summary ---
- NOTES TO OUTPATIENT PROVIDER Notes to Outpatient Provider: Routine follow-up w/PCP post-discharge. Pt. placed on 5 days of Bactrim for possible cellulitis. Orders not resulted at time of discharge: Pending orders 11/30/17 19:49 Culture,Wound [RM] Stat Date of Encounter: 12/03/17 Time of Encounter: 09:15 - Discharge Diagnosis (1) S/P arthroscopic surgery of right knee Priority: Primary Status: Acute Assessment and Plan: Status post-right knee arthroscopy on 11/28/[address] Sewell. Presented w/right knee pain. Right knee Xray shows no acute findings. Bilateral LE Dopplers negative for DVTs. Evaluated by Dr. Sewell who noted no evidence of effusion or infective process, however sx improved w/IV vancomycin. Discussed w/Dr. Sewell and will discharge on 3 days of PO Bactrim. Add PO probiotic. OTC pain medication as needed. F/u w/ortho as outpatient. (2) Leukocytosis Priority: Primary Status: Resolved Assessment and Plan: Resolved. Possible right knee cellulitis. Continue antibiotics as per above. Qualifiers: Leukocytosis type: unspecified Qualified Code(s): D72.829 - Elevated white blood cell count, unspecified (3) Depression Priority: Secondary Status: Chronic Assessment and Plan: Continue home medications. Qualifiers: Depression Type: major depressive disorder Major depression recurrence: recurrent Active/Remission status: in partial remission Qualified Code(s): F33.41 - Major depressive disorder, recurrent, in partial remission (4) GERD (gastroesophageal reflux disease) Priority: Secondary Status: Chronic Assessment and Plan: Continue omeprazole and famotidine. Qualifiers: Esophagitis presence: without esophagitis Qualified Code(s): K21.9 - Gastro -esophageal reflux disease without esophagitis (5) History of intravenous drug abuse Priority: Secondary Status: Chronic Assessment and Plan: No withdrawal symptoms. (6) Tobacco abuse Priority: Secondary Status: Chronic Assessment and Plan: Counselled on smoking cessation. Nicotine patch at discharge. (7) Hepatitis C Priority: Secondary Status: Chronic Assessment and Plan: Per history stable. follow-up outpatient as previously planned. Qualifiers: Viral hepatitis chronicity: unspecified Hepatic coma status: without hepatic coma Qualified Code(s): B19.20 - Unspecified viral hepatitis C without hepatic coma Hospital course: Please assessment and plan for hospital course. Discharge discussed with: patient (Pt. seen and examined at bedside. Pt. is new to me so pt. information obtained from chart review and pt. report. During assessment, pt. stated she feels much better w/mild right knee pain that is significantly improved. Would like to be discharged today. Discussed w/Dr. Sewell w/plan to discharge on PO Bactrim. Will add Culturelle. ), nurse - Time Spent with Patient Total time spent providing and/or coordinating discharge services: - Discharge Medications Prescriptions: L. Rhamnosus GG/Inulin [Culturelle Probiotics Capsule] 1 each PO TID #21 capsule Nicotine Patch [Nicoderm] 1 each TD DAILY #30 patch.td24 Sulfamethoxazole/Trimeth DS [Bactrim DS] 1 each PO BID #6 tablet Home Medications: Cholecalciferol (D-3) [Vitamin D] 2,000 unit PO DAILY 05/31/16 [History] Gabapentin [Neurontin] 800 mg PO QID 05/31/16 [History] Pnv95/Iron Fum/Folic Acid [ Caplet] 1 tab PO DAILY 05/31/16 [History] Promethazine [Phenergan] 25 mg PO Q8HR 05/31/16 [History] Quetiapine Fumarate [Seroquel] 400 mg PO DAILY 05/31/16 [History] Ranitidine HCl [Acid Benzene Still Utility Operator] 150 mg PO BID 05/31/16 [History] Sertraline [Zoloft] 100 mg PO HS 05/31/16 [History] ALPRAZolam [Xanax 1 MG Tablet] 1 mg PO QID 11/30/17 [History] Ibuprofen [Motrin] 800 mg PO Q8HR 11/30/17 [History] Tizanidine HCl [Zanaflex] 6 mg PO BID 11/30/17 [History] ARIPiprazole [Abilify] 10 mg PO DAILY 12/02/17 [History] Levothyroxine Sodium [Levoxyl] 50 mcg PO DAILY 12/02/17 [History] Mometasone Furoate [Asmanex Hfa] 2 puff IH BID 12/02/17 [History] Oxycodone HCl [Oxaydo] 5 mg PO Q6H PRN 12/02/17 [History] L. Rhamnosus GG/Inulin [Culturelle Probiotics Capsule] 1 each PO TID #21 capsule 12/03/17 [Rx] Nicotine Patch [Nicoderm] 1 each TD DAILY #30 patch.td24 12/03/17 [Rx] Sulfamethoxazole/Trimeth DS [Bactrim DS] 1 each PO BID #6 tablet 12/03/17 [Rx] Allergies/Adverse Reactions: 3 Allergy/AdvReac Type Severity Reaction Status Date / Time hydrocodone Allergy Hives Verified 11/30/17 15:40 penicillin G Allergy Rash Verified 11/30/17 15:40 tramadol Allergy Hives Verified 11/30/17 15:40 Date of admission: 11/30/17 19:31 Primary care physician: Belia Roberson Discharging clinician: Walter Bueno Anticipated date of discharge: 12/03/17 - Constitutional Vitals: Temp Pulse Resp BP Pulse Ox 98.9 F 100 18 108/71 96 12/03/17 06:40 12/03/17 06:40 12/03/17 06:40 12/03/17 06:40 12/03/17 06:40 General appearance: Present: cooperative, A&O X 3, pleasant, no acute distress, answers questions appropriately - Head Head exam: Present: atraumatic, normocephalic - Eye Eye exam: Present: PERRL, conjuntiva pink, sclera anicteric Pupils: Present: PERRL - ENT ENT exam: Present: mucous membranes moist, normal exam - Neck Neck exam general surgery: Present: normal inspection, supple, trachea midline. Absent: lymphadenopathy - Respiratory Respiratory exam: Present: CTAB. Absent: accessory muscle use, rales, rhonchi, wheezes - Cardiovascular Cardiovascular exam: Present: RRR, +S1, +S2. Absent: diastolic murmur, gallop, rubs, systolic murmur - GI/Abdominal GI/Abdominal exam: Present: normal bowel sounds, soft, no peritoneal signs. Absent: distended, tenderness - Rectal Rectal exam: Present: deferred - Additional comments: exam deferred. - Extremities Exam Extremities exam: Present: warm, radial pulses palpable and symmetrical. Absent : calf tenderness, cyanotic, pedal edema - Back Exam Back exam: Present: normal inspection - Neurological Exam Neurological exam: Present: alert, CN II-XII intact, oriented X3, no focal deficits. Absent: pronater drift, facial droop, speech deficit - Psychiatric Psychiatric exam: Present: normal affect, normal mood - Skin Skin exam: Present: dry, intact - Patient Status Disposition: Home, Self-Care Condition: Good Functional capacity at discharge: independent ambulation Overall status at discharge: patient is back to baseline - Discharge Instructions Instructions: Sulfamethoxazole/Trimethoprim (By mouth), Probiotic (By mouth), Nicotine (Absorbed through the skin), How to Stop Smoking (DC), Cellulitis (DC) Follow Up With: Belia Roberson [Primary Care Provider] - (Please call for follow-up appointment within one week.) Regino Sewell DO [Non-Partnered Physician] - (Please call office for follow- up appointment within one week.) Additional Instructions: May shower after 5 days of knee scope. No tub baths. Allow steri strips to fall off on their own, please do not remove or trim. Follow up with orthopedics as scheduled, see sooner or return to ER if you notice any excessive redness, fever , chills, odor or drainage from incision site. Complete the full course of antibiotics as prescribed. - Diet and Activity Activity: increase activity as tolerated Diet: advance to your usual diet
== END 2017-12-03 11:45 | disposition home or self-care (01) ==
LOC: EMEROO 15:26 → 3NENU 15:26
PROVIDERS: ADMIT Internal Medicine; ATTEND Internal Medicine